=== PATIENT | female | born 2000 | race Caucasian/White ===

== ENCOUNTER 2020-09-20 04:17 | Emergency (ER) | payer MEDICAID ==
[~2020-09-20] VITALS: Ht 160 cm; Wt 80.9 kg
[~2020-09-20 04:17] MED LIST: NO HOME MEDS
[2020-09-20 04:28] VITALS: BP 122/87
[2020-09-20] MEDS ORDERED: acetaminophen 325mg tablet PO ONE (04:40)
== END 2020-09-20 06:02 | disposition home or self-care (01) ==
LOC: ER 04:18
DX: L02.611 Cutaneous abscess of right foot (principal); M79.671 Pain in right foot; K21.9 Gastro-esophageal reflux disease without esophagitis; F17.200 Nicotine dependence, unspecified, uncomplicated; F12.90 Cannabis use, unspecified, uncomplicated; Z88.0 Allergy status to penicillin
CPT/HCPCS: 10060; 10160; 73610; 76882; 99284

== ENCOUNTER 2020-10-27 04:21 | Emergency (ER) | payer MEDICAID ==
[~2020-10-27] VITALS: Ht 157.5 cm; Wt 79.5 kg
[2020-10-27 04:44] VITALS: BP 132/78
== END 2020-10-27 04:46 | disposition home or self-care (01) ==
LOC: ER 04:22
DX: Z11.3 Encounter for screening for infections with a predominantly sexual mode of transmission (principal); K21.9 Gastro-esophageal reflux disease without esophagitis; F12.10 Cannabis abuse, uncomplicated; Z88.0 Allergy status to penicillin
CPT/HCPCS: 99281

== ENCOUNTER 2021-01-07 18:15 | Emergency (ER) | payer MEDICAID ==
[~2021-01-07] VITALS: Ht 160 cm; Wt 79.5 kg
[2021-01-07 20:09] LABS: URINE HCG NEGATIVE (NEG)
[2021-01-07 20:16] LABS: CLARITY,URINE CLEAR (Clear); COLOR,URINE YELLOW (Yellow); GLUCOSE, URINE NEGATIVE (Neg); KETONES,URINE NEGATIVE (Neg); LEUKOCYTE ESTERASE ,URINE TRACE (Neg); NITRITES, URINE NEGATIVE (Neg); OCCULT BLOOD,URINE SMALL (Neg); PH,URINE 5.5 (4.8-8.0); PROTEIN,URINE TRACE mg/dl (Neg); UA COLLECTION TYPE CLN CATCH MIDSTREAM; UROBILINOGEN,URINE 0.2 E.U/dL (0.2-1.0)
[2021-01-07 20:18] LABS: BASOPHILS % (AUTO) 0.5 % (0-1); EOSINOPHILS # (AUTO) 0.1 X10'3 (0-0.9); EOSINOPHILS % (AUTO) 2.1 % (0-6); HEMATOCRIT 34.7 % (35.0-45.0); HEMOGLOBIN 11.3 g/dl (12.0-16.0); LYMPHOCYTES # (AUTO) 1.1 X10'3 (1.1-4.8); LYMPHOCYTES % (AUTO) 21.3 % (21-51); MEAN CORPUSCULAR HGB CONC 32.7 g/dL (33.0-36.5); MEAN CORPUSCULAR VOLUME 82.5 FL (78-98); MONOCYTES # (AUTO) 0.5 X10'3 (0-0.9); MONOCYTES % (AUTO) 10.1 % (2-12); NEUTROPHILS # (AUTO) 3.4 X10'3 (1.8-7.7); PLATELET COUNT 276 X10'3 (140-440); RED BLOOD COUNT 4.21 X10'6 (4.20-5.60); RED CELL DISTRIBUTION WIDTH 15.3 % (11.5-14.5); WHITE BLOOD COUNT 5.2 X10'3 (4.5-11.0)
[2021-01-07 20:34] LABS: ALANINE AMINOTRANSFERASE 16 U/L (12-78); ALBUMIN 3.9 G/DL (3.4-5.0); ALBUMIN/GLOBULIN RATIO 1.1 (1.1-1.5); ALKALINE PHOSPHATASE 49 IU/L (46-116); ANION GAP 7 (8-16); ASPARTATE AMINO TRANSFERASE 4 U/L (10-37); BILIRUBIN,TOTAL 0.2 MG/DL (0.1-1.0); BLOOD UREA NITROGEN 14 MG/DL (7-18); BUN/CREATININE RATIO 19.7 (6.6-38.0); CHLORIDE 105 MMOL/L (99-107); CREATININE 0.71 MG/DL (0.40-0.90); GLUCOSE 103 MG/DL (70-104); POTASSIUM 3.8 MMOL/L (3.5-5.1); SODIUM 141 MMOL/L (135-145); TOTAL CARBON DIOXIDE 28.6 MMOL/L (24-32); TOTAL PROTEIN 7.3 G/DL (6.4-8.2); eGFR > 90 ML/MIN
[2021-01-07] MEDS ORDERED: MEDR10TA PO (20:34)
[2021-01-07 20:47] LABS: BACTERIA,URINE 3+ /HPF (Neg); CAL OXALATE CRYSTALS 2+ /HPF (NEGATIVE); SQUAMOUS EPITHELIAL CELL,UR MODERATE /LPF (FEW)
[2021-01-07] MEDS ORDERED: CEPH250T PO (20:51)
[2021-01-07 21:11] VITALS: BP 148/56
== END 2021-01-07 21:14 | disposition home or self-care (01) ==
LOC: ER 18:15
DX: N93.9 Abnormal uterine and vaginal bleeding, unspecified (principal); N39.0 Urinary tract infection, site not specified; K21.9 Gastro-esophageal reflux disease without esophagitis; F12.90 Cannabis use, unspecified, uncomplicated; Z90.49 Acquired absence of other specified parts of digestive tract; Z88.0 Allergy status to penicillin; Z79.2 Long term (current) use of antibiotics; Z79.899 Other long term (current) drug therapy
CPT/HCPCS: 36415; 80053; 81001; 81025; 85025; 87077; 87088; 87186; 99283

== ENCOUNTER 2021-05-15 20:08 | Emergency (ER) | payer MEDICAID ==
[~2021-05-15 20:08] MED LIST changes: +MEDR10TA PO
--- NOTE | 2021-05-15 20:46 | NUR ---
PATIENT NO IN LOBBY
--- NOTE | 2021-05-15 21:01 | NUR ---
NOT IN LOBBY
--- NOTE | 2021-05-15 21:30 | NUR ---
NOT IN LOBBY
== END 2021-05-15 22:21 | disposition left against medical advice (07) ==
LOC: ER 20:09
DX: H00.019 Hordeolum externum unspecified eye, unspecified eyelid (principal); Z53.21 Procedure and treatment not carried out due to patient leaving prior to being seen by health care provider

== ENCOUNTER 2021-12-01 22:16 | Emergency (ER) | payer MEDICAID ==
[~2021-12-01] VITALS: Ht 154.9 cm; Wt 77.3 kg
[2021-12-01 22:30] VITALS: BP 130/69
--- NOTE | 2021-12-01 22:45 | NUR ---
patient's face and eyes flushed w/ 1000 sterile water
[2021-12-01] MEDS ORDERED: LORazepam 1 MG tablet PO ONE (22:55)
--- NOTE | 2021-12-01 23:30 | NUR ---
lu lenses placed in each eye, flushed w/ 1000ml each
--- NOTE | 2021-12-02 01:30 | NUR ---
patient placed in shower for 20 min
[2021-12-02] MEDS ORDERED: morphine 4 MG/ML inj SYRINge IV ONE (02:35)
--- NOTE | 2021-12-02 03:14 | NUR ---
2nd irrigation w/ natalio lens 1000ml each eye
[2021-12-02 05:42] LABS: BASOPHILS % (AUTO) 0.5 % (0-1); EOSINOPHILS % (AUTO) 0.5 % (0-6); HEMATOCRIT 38.2 % (35.0-45.0); HEMOGLOBIN 13.1 g/dl (12.0-16.0); LYMPHOCYTES # (AUTO) 1.7 X10'3 (1.1-4.8); LYMPHOCYTES % (AUTO) 18.6 % (21-51); MEAN CORPUSCULAR HEMOGLOBIN 29.7 PG (27.0-31.0); MEAN CORPUSCULAR HGB CONC 34.2 g/dL (33.0-36.5); MEAN CORPUSCULAR VOLUME 86.9 FL (78-98); MEAN PLATELET VOLUME 7.3 FL (7.4-10.4); MONOCYTES # (AUTO) 0.5 X10'3 (0-0.9); MONOCYTES % (AUTO) 5.7 % (2-12); NEUTROPHILS # (AUTO) 6.7 X10'3 (1.8-7.7); NEUTROPHILS % (AUTO) 74.7 % (42-75); PLATELET COUNT 260 X10'3 (140-440); RED CELL DISTRIBUTION WIDTH 12.9 % (11.5-14.5)
[2021-12-02 05:49] LABS: ALBUMIN 3.8 G/DL (3.4-5.0); ANION GAP 7 (8-16); BLOOD UREA NITROGEN 8 MG/DL (7-18); BUN/CREATININE RATIO 13.8 (6.6-38.0); CHLORIDE 102 MMOL/L (99-107); CREATININE 0.58 MG/DL (0.40-0.90); GLUCOSE 96 MG/DL (70-104); SODIUM 138 MMOL/L (135-145); TOTAL CARBON DIOXIDE 28.6 MMOL/L (24-32); eGFR > 90 ML/MIN
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
--- NOTE | 2021-12-02 08:27 | NUR ---
ASSAULT REPORT MADE TO QUAN; CASE#[id number]
== END 2021-12-02 07:56 | disposition left against medical advice (07) ==
LOC: ER 22:17
DX: T20.10XA Burn of first degree of head, face, and neck, unspecified site, initial encounter (principal); Z20.822 Contact with and (suspected) exposure to COVID-19; T59.4X1A Toxic effect of chlorine gas, accidental (unintentional), initial encounter; H11.422 Conjunctival edema, left eye; K21.9 Gastro-esophageal reflux disease without esophagitis; Z90.49 Acquired absence of other specified parts of digestive tract; Z88.0 Allergy status to penicillin; Z79.899 Other long term (current) drug therapy; Y92.89 Other specified places as the place of occurrence of the external cause
CPT/HCPCS: 36415; 80048; 85025; 87635; 99283; C9803

== ENCOUNTER 2022-01-12 13:36 | Emergency (ER) | payer MEDICAID ==
[~2022-01-12] VITALS: Ht 160 cm; Wt 84.1 kg
[2022-01-12 13:42] VITALS: BP 118/73
== END 2022-01-12 17:00 | disposition left against medical advice (07) ==
LOC: ER 13:36
DX: N93.9 Abnormal uterine and vaginal bleeding, unspecified (principal); Z53.21 Procedure and treatment not carried out due to patient leaving prior to being seen by health care provider

== ENCOUNTER 2022-07-30 22:11 | Emergency (ER) | payer SELFPAY ==
[~2022-07-30] VITALS: Ht 160 cm; Wt 84.0 kg
[2022-07-30 22:16] VITALS: BP 118/69
== END 2022-07-30 23:36 | disposition left against medical advice (07) ==
LOC: ER 22:11
DX: M79.605 Pain in left leg (principal); Z53.21 Procedure and treatment not carried out due to patient leaving prior to being seen by health care provider

== ENCOUNTER 2022-11-15 14:36 | Emergency (ER) | payer MEDICAID ==
[~2022-11-15] VITALS: Ht 157.5 cm; Wt 77.0 kg
[2022-11-15 14:42] VITALS: BP 105/68
== END 2022-11-15 16:32 | disposition left against medical advice (07) ==
LOC: ER 14:36
DX: K04.7 Periapical abscess without sinus (principal); Z53.21 Procedure and treatment not carried out due to patient leaving prior to being seen by health care provider